=== PATIENT | male | born 2000 | race African-American/Black ===

== ENCOUNTER 2020-10-30 22:22 | Emergency (ER) | payer BC ==
[2020-10-30 22:27] VITALS: BP 128/80; PULSE 96; TEMP 98; BMI 22.8
[2020-10-30] MEDS ORDERED: ASPIRIN 81 MG CHEWABLE TABLETS PO ONE (23:14)
[2020-10-30] MEDS ORDERED: ASPIRIN 81 MG CHEWABLE TABLETS ONE (23:48)
[2020-10-31 00:25] LABS: BASO % 0.6 % (0-2.0); EOS % 2.5 % (0-4.5); HEMATOCRIT 38.1 % (35.4-49); HEMOGLOBIN 12.6 GM/dL (11.7-16.9); LYMPH % 32.8 % (8-40); MCH 27.4 pg (25.7-33.7); MCHC 33.1 g/dl (32.0-35.9); MEAN CELL VOLUME 82.6 fl (80-96); MEAN PLT VOLUME 10.2 fl (7.5-11.1); MONO % 9.2 % (3.8-10.2); NEUT % 54.9 % (42.8-82.8); PLATELET COUNT 208 K/MM3 (134-434); RBC 4.61 M/mm3 (4.00-5.60); RDW 13.2 % (11.9-15.9); WHITE BLOOD COUNT 6.2 K/mm3 (4.0-10.0)
[2020-10-31 00:26] LABS: CHLORIDE 108 mmol/L (98-107); POTASSIUM 3.8 mmol/L (3.5-5.1); SODIUM 143 mmol/L (136-145)
[2020-10-31 00:28] LABS: CALCIUM 8.7 mg/dL (8.5-10.1)
[2020-10-31 00:29] LABS: ALBUMIN 3.9 g/dl (3.4-5.0); ANION GAP 6 MMOL/L (8-16); BLOOD UREA NITROGEN 18.3 mg/dL (7-18); CO2 29 mmol/L (21-32); GLUCOSE,RANDOM 107 mg/dL (74-106)
[2020-10-31 00:32] LABS: CREATININE 1.1 mg/dL (0.55-1.3); SGOT/AST 28 U/L (15-37); SGPT/ALT 21 U/L (13-61)
[2020-10-31 00:33] LABS: BILIRUBIN,TOTAL 0.5 mg/dL (0.2-1); TOT PROT 7.2 g/dl (6.4-8.2)
[2020-10-31 00:34] LABS: ALK PHOS 69 U/L (45-117)
[2020-10-31 01:09] LABS: INR 1.04 (0.83-1.09); PROTHROMBIN TIME (PATIENT) 12.8 SEC (9.7-13.0)
[2020-10-31 01:12] LABS: ACTIVATED PTT 37.5 SECONDS (25.2-36.5)
== END 2020-10-31 06:06 | disposition home or self-care (01) ==
LOC: JER 22:22
DX: R07.9 Chest pain, unspecified (principal)
CPT/HCPCS: 36415; 71046-TC-FY; 80053; 82550; 82553; 83735; 84484; 85025; 85610; 85730; 93005; 93010; 99283-25